=== PATIENT | female | born 1975 | race Caucasian/White ===

== ENCOUNTER 2024-03-20 09:32 | Emergency (ER) | payer MEDICAID, SELFPAY ==
[2024-03-20 10:01] VITALS: BP 112/74; PULSE 100; RESP 19; TEMP 37.1; O2SAT 97; BMI 24.8
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
== END 2024-03-20 13:30 | disposition left against medical advice (07) ==
LOC: SERX 10:26
PROVIDERS: Emergency Provider Emergency Medicine; PCP Student in an Organized Health Care Education/Training Program
DX: J06.9 Acute upper respiratory infection, unspecified (principal); F17.210 Nicotine dependence, cigarettes, uncomplicated
CPT/HCPCS: 87400; 87811; 99281